=== PATIENT | female | born 1990 | race Caucasian/White ===

== ENCOUNTER 2025-08-16 12:27 | Emergency (ER) | payer OTHER ==
[~2025-08-16] VITALS: Ht 152.4 cm; Wt 61.2 kg
[2025-08-16 12:51] VITALS: TEMP 98.7
--- NOTE | 2025-08-16 13:06 | NUR ---
DR RUBIN AT BEDSIDE FOR EVAL.
--- NOTE | 2025-08-16 13:19 | NUR ---
US TECH AT BEDSIDE FOR PELVIC ULTRASOUND.
[2025-08-16 13:22] LABS: APPEARANCE,URINE CLEAR (CLEAR); BLOOD, URINE TRACE Ery/uL (NEGATIVE); LEUKOCYTE ESTERASE ,URINE NEGATIVE (NEGATIVE); NITRITE, URINE NEGATIVE (NEGATIVE); UGLUCOSE NEGATIVE (NEGATIVE)
[2025-08-16 13:27] LABS: PREGNANCY TEST URINE QUAL NEGATIVE (NEGATIVE)
[2025-08-16 13:32] LABS: ADD URINE CULTURE NO
--- NOTE | 2025-08-16 13:35 | NUR ---
PT REFUSED PELVIC ULTRASOUND FOR NOW, AGREABLE TO CT SCAN. DR RUBIN AWARE.
[2025-08-16 14:15] LABS: PLATELET COUNT (AUTO) 303 K/uL (150-450); RED BLOOD CELL COUNT(AUTO) 4.99 MIL/uL (4.0-5.2); RED CELL DISTRIBUTION WIDTH 13.4 % (11.5-15.0); WHITE BLOOD COUNT (AUTO) 19.1 K/uL (4.3-11.0)
[2025-08-16 14:31] LABS: ASPARTATE AMINOTRANSFERASE 14.0 U/L (15-37); CALCIUM, SERUM 9.8 mg/dL (8.5-10.1); CREATININE 0.7 mg/dL (0.6-1.3); SODIUM SERUM 137.0 mmol/L (136-145); TOTAL PROTEIN, SERUM 8.3 g/dL (6.4-8.2); UREA NITROGEN, BLOOD 10.0 mg/dL (7-18)
[2025-08-16] MEDS ORDERED: CIPR500T5 PO (14:39)
[2025-08-16] MEDS ORDERED: METR500T PO (14:39)
[2025-08-16 14:48] VITALS: BP 121/86; O2SAT 97
--- NOTE | 2025-08-16 14:48 | NUR ---
Patient discharged to home in stable condition. Written and verbal after care instructions given. Patient verbalizes understanding of instruction.
== END 2025-08-16 14:49 | disposition home or self-care (01) ==
LOC: ER 12:32
DX: K57.32 Diverticulitis of large intestine without perforation or abscess without bleeding (principal); K52.9 Noninfective gastroenteritis and colitis, unspecified
CPT/HCPCS: 36415; 80048-TC; 80076-TC; 81001; 83690-TC; 84703-TC; 85025-TC